=== PATIENT | male | born 1990 | race African-American/Black ===

== ENCOUNTER 2018-03-20 17:14 | Emergency (ER) | payer SELFPAY ==
[2018-03-20] MEDS ORDERED: HYDROCODONE/ACETAMINOPHEN 5-325 MG TABLET PO ONE (18:30)
[2018-03-20] MEDS ORDERED: ONDANSETRON 4 MG TAB.RAPDIS PO ONE (18:30)
[2018-03-20 19:05] LABS: ABSOLUTE EOSINOPHILS # (AUTO) 0.1 10^3/uL (0.0-0.6); ABSOLUTE LYMPHOCYTES (AUTO) 1.8 10^3/uL (0.5-4.7); ABSOLUTE MONOCYTES (AUTO) 0.5 10^3/uL (0.1-1.4); BASOPHILS % (AUTO) 0.4 % (0-2); EOSINOPHILS % (AUTO) 0.9 % (0-6); HEMATOCRIT 46.7 % (37.9-51.0); HEMOGLOBIN 15.5 g/dL (13.5-17.0); LYMPHOCYTES % (AUTO) 28.3 % (13-45); MEAN CORPUSCULAR HGB CONC 33.2 g/dL (32.0-36.0); MEAN CORPUSCULAR VOLUME 85 fl (80-97); MONOCYTES % (AUTO) 7.9 % (3-13); PLATELET COUNT 143 10^3/uL (150-450); RED BLOOD COUNT 5.52 10^6/uL (4.35-5.55); RED CELL DISTRIBUTION WIDTH 14.6 % (11.5-14.0); SEGMENTED NEUTROPHILS % (AUTO) 62.5 % (42-78); TOTAL CELLS COUNTED % (AUTO) 100 %; WHITE BLOOD COUNT 6.5 10^3/uL (4.0-10.5)
[2018-03-20 19:20] LABS: ALANINE AMINOTRANSFERASE 18 U/L (21-72); ALBUMIN 4.8 g/dL (3.5-5.0); ALKALINE PHOSPHATASE 91 U/L (38-126); ANION GAP 9 (5-19); ASPARTATE AMINO TRANSFERASE 17 U/L (17-59); BILIRUBIN,DIRECT 0.2 mg/dL (0.0-0.4); BILIRUBIN,TOTAL 0.5 mg/dL (0.2-1.3); BLOOD UREA NITROGEN 11 mg/dL (7-20); CALCIUM 9.7 mg/dL (8.4-10.2); CARBON DIOXIDE 27 mmol/L (22-30); CHLORIDE 104 mmol/L (98-107); GLUCOSE 89 mg/dL (75-110); POTASSIUM 4.2 mmol/L (3.6-5.0); SODIUM 140.2 mmol/L (137-145); TOTAL PROTEIN 7.7 g/dL (6.3-8.2)
--- NOTE | 2018-03-20 20:36 | ER Document Report ---
ED Medical Screen (RME) - General Chief Complaint: Bloody Stools Stated Complaint: BLOOD IN STOOL/FLU SYMPTOMS Time Seen by Provider: 03/20/18 18:23 Mode of Arrival: Ambulatory Information source: Patient TRAVEL OUTSIDE OF THE [place] IN LAST 30 DAYS: No - HPI Patient complains to provider of: Nausea abdominal pain rectal bleeding. Onset: Other - This is a 27-year-old man who presents for episodes of red blood on his toilet paper over the last day as well as persistent nausea and vomiting over the last day. He had been vomiting multiple times leading up to this morning around 1 AM since he has been able to take small sips of fluids. He denies any surgical history of past medical history of blood thinner use or otherwise. - Related Data Allergies/Adverse Reactions: amoxicillin trihydrate [From Augmentin] Allergy (Verified 03/20/18 18:27) Potassium Clavulanate * [From Augmentin] Allergy (Verified 03/20/18 18:27) Past Medical History - General Information source: Patient - Social History Cigarette use (# per day): Yes Chew tobacco use (# tins/day): No Frequency of alcohol use: Occasional Drug Abuse: None Renal/ Medical History: Denies: Hx Peritoneal Dialysis - Immunizations Immunizations up to date: Yes Hx Diphtheria, Pertussis, Tetanus Vaccination: Yes Review of Systems - Review of Systems -: Yes All other systems reviewed and negative Physical Exam - Vital signs Vitals: Temp Pulse Resp BP Pulse Ox 98.3 F 76 16 127/82 H 99 03/20/18 17:32 03/20/18 17:32 03/20/18 17:32 03/20/18 17:32 03/20/18 17:32 Interpretation: Normal - General General appearance: Appears well, Alert - HEENT Head: Normocephalic, Atraumatic Eyes: Normal Pupils: PERRL - Respiratory Respiratory status: No respiratory distress Chest status: Nontender Breath sounds: Normal Chest palpation: Normal - Cardiovascular Rhythm: Regular Heart sounds: Normal auscultation Murmur: No - Abdominal Inspection: Normal Distension: No distension Bowel sounds: Normal Tenderness: Tender - Diffuse tenderness throughout the abdomen most prominent in the inferior aspect Organomegaly: No organomegaly - Back Back: Normal, Nontender - Extremities General upper extremity: Normal inspection, Nontender, Normal color, Normal ROM, Normal temperature General lower extremity: Normal inspection, Nontender, Normal color, Normal ROM, Normal temperature, Normal weight bearing. No: Brina's sign - Neurological Neuro grossly intact: Yes Cognition: Normal Orientation: AAOx4 Naif Coma Scale Eye Opening: Spontaneous Naif Coma Scale Verbal: Oriented Naif Coma Scale Motor: Obeys Commands Naif Coma Scale Total: 15 Speech: Normal Motor strength normal: LUE, RUE, LLE, RLE Sensory: Normal - Psychological Associated symptoms: Normal affect, Normal mood - Skin Skin Temperature: Warm Skin Moisture: Dry Skin Color: Normal Course - Re-evaluation Re-evalutation: 03/20/18 20:57 27-year-old man who presents for evaluation of pain in the setting of prominent vomiting with retching over the last day which worsened today stopping at 1 AM thereafter he was having some abdominal pain and then noted blood on toilet paper after 2 episodes of going to the bathroom with perfuse watery diarrhea. He endorses some low-grade fevers. Because of his well appearance on exam we will pursue a workup including CMP CBC administration of an antiemetic p.o. fluids and reassessment. Do not believe this person should undergo immediate imaging at this time such as but not limited to x-rays, CT imaging. Do not believe that he has acute appendicitis, diverticulitis, diverticulosis. On reassessment this patient has reassuring labs, and improved abdominal examination. Is able to tolerate p.o. in the emergency department. We will plan for antipyretic antiemetic and diarrhea medication with discharge. - Vital Signs Vital signs: Temp Pulse Resp BP Pulse Ox 98.3 F 76 16 127/82 H 99 03/20/18 17:32 03/20/18 17:32 03/20/18 17:32 03/20/18 17:32 03/20/18 17:32 - Laboratory Result Diagrams: 03/20/18 18:43 03/20/18 18:43 Laboratory results interpreted by me: 03/20/18 03/20/18 18:43 18:43 RDW 14.6 H Plt Count 143 L ALT 18 L Doctor's Discharge - Discharge Clinical Impression: BRBPR (bright red blood per rectum), Nausea Vomiting Qualifiers: Vomiting type: unspecified Vomiting Intractability: unspecified Nausea presence: unspecified Qualified Code(s): R11.10 - Vomiting, unspecified Abdominal pain Qualifiers: Abdominal location: unspecified location Qualified Code(s): R10.9 - Unspecified abdominal pain Condition: Good Disposition: HOME, SELF-CARE Instructions: Abdominal Pain ([facility]), Antinausea Medication ([facility]), Prescribed Ant idiarrhea Medications ([facility]), Vomiting ([facility]) Additional Instructions: You were seen today in the emergency department for your abdominal pain as well as nausea and vomiting and diarrhea. You have been given a medication to help with the nausea it is called Zofran. You have been given a medication to help with the diarrhea it is called Lomotil. Use the nausea medication and drink fluids thereafter such as Pedialyte or Gatorade. For the cramps and pain in your abdomen use Tylenol 1 g 4 times daily. Return in case you have any worsening fevers or chills, if you are unable to eat or drink anything or if your pain changes or worsens. Prescriptions: Acetaminophen [Tylenol 325 mg Tablet] 975 mg PO Q6HP PRN #60 tablet PRN Reason: Diphenoxylate HCl/Atropine [Lomotil Tablet] 1 each PO BID PRN #30 tablet PRN Reason: Ondansetron [Zofran Odt 4 mg Tablet] 1 - 2 tab PO Q4H PRN #30 tab.rapdis PRN Reason: For Nausea/Vomiting Forms: Return to Work
[2018-03-20 21:47] VITALS: BP 122/81
== END 2018-03-20 21:47 | disposition home or self-care (01) ==
LOC: ER 17:14
DX: K62.5 Hemorrhage of anus and rectum (principal); R11.2 Nausea with vomiting, unspecified; R10.9 Unspecified abdominal pain; R10.817 Generalized abdominal tenderness; R19.7 Diarrhea, unspecified; R50.9 Fever, unspecified; Z72.0 Tobacco use; Z88.0 Allergy status to penicillin
CPT/HCPCS: 99283; 36415; 85025; 80053; S0119

== ENCOUNTER 2019-01-07 12:30 | Emergency (ER) | payer SELFPAY ==
[2019-01-07] MEDS ORDERED: LIDOCAINE 2% VISCOUS SOLN 20 ML UDCUP PO ONE (14:32)
[2019-01-07] MEDS ORDERED: ACETAMINOPHEN 325 MG TABLET PO ONE (14:33)
[2019-01-07] MEDS ORDERED: IBUPROFEN 600 MG TABLET PO ONE (14:33)
--- NOTE | 2019-01-07 14:34 | ER Document Report ---
HPI - HPI Patient complains to provider of: tooth pain Time Seen by Provider: 01/07/19 14:21 Context: 28-year-old male presents the emergency department with significant pain at the area of #32 tooth. Patient states it has been hurting since last night but this morning it was painful for him to open his mouth and it hurts to swallow. Patient denies foul taste in his mouth, denies trismus, denies fevers or chills, denies dysphagia - REPRODUCTIVE Reproductive: DENIES: : Past Medical History - Social History Smoking Status: Unknown if Ever Smoked Family History: Reviewed & Not Pertinent Renal/ Medical History: Denies: Hx Peritoneal Dialysis - Immunizations Immunizations up to date: Yes Hx Diphtheria, Pertussis, Tetanus Vaccination: Yes Vertical Provider Document - CONSTITUTIONAL Notes: PHYSICAL EXAMINATION: Reviewed vital signs and charting by RN GENERAL: Alert, interacts well. No acute distress. HEAD: Normocephalic, atraumatic. EYES: Pupils equal and round. Extraocular movements intact. ENT: Oral mucosa moist, tongue midline. Gingival swelling around the #32 tooth on the lingual side. NECK: Full range of motion. Trachea midline. EXTREMITIES: Moves all 4 extremities spontaneously. No edema, No cyanosis. PSYCH: Normal affect, normal mood. SKIN: Warm, dry, normal turgor. No rashes or lesions noted. - INFECTION CONTROL TRAVEL OUTSIDE OF THE [place] IN LAST 30 DAYS: No Course - Re-evaluation Re-evalutation: 01/07/19 15:02 Presentation is most consistent with likely an infected tooth. Airway is patent. Vitals within normal limits. Patient is able swallow without any difficulty. There is no significant facial swelling. No evidence of Jeferson angina, apical abscess, or airway obstruction. Patient will be started on antibiotics. I've instructed to follow-up with dentistry as earliest ability for definitive management. At this time will discharge with return precautions and follow-up recommendations. Verbal discharge instructions given a the bedside and opportunity for questions given. Medication warnings reviewed. Patient is in agreement with this plan and has verbalized understanding of return precautions and the need for primary care follow-up in the next 24-72 hours. - Vital Signs Vital signs: Temp Pulse Resp BP Pulse Ox 97.8 F 70 18 121/65 98 01/07/19 12:54 01/07/19 12:54 01/07/19 12:54 01/07/19 12:54 01/07/19 12:54 Discharge - Discharge Clinical Impression: Tooth infection Condition: Good Disposition: HOME, SELF-CARE Additional Instructions: You have been seen for dental pain. It is very important that you follow-up with a dentist for definitive care. Please return if you develop fever greater than 101, swelling in your face, vomiting, difficulty breathing or swallowing, or any other symptoms that are concerning to you. Please take the antibiotics as prescribed and use the good Rx card to help offset the costs. It is important because you are allergic to the penicillins that you need to take this 1. For pain you should take ibuprofen 600 mg every 6 hours as needed. [facility] as they can do extractions if they deem that tooth needs to get removed. Their number is [phone]
[2019-01-07] MEDS ORDERED: CLINDAMYCIN HCL 150 MG CAPSULE PO ONE (14:45)
[2019-01-07 15:41] VITALS: BP 110/69
== END 2019-01-07 15:41 | disposition home or self-care (01) ==
LOC: ER 12:30
DX: K04.7 Periapical abscess without sinus (principal); K08.89 Other specified disorders of teeth and supporting structures
CPT/HCPCS: J3490

== ENCOUNTER 2019-04-07 21:53 | Inpatient (IN) | payer SELFPAY ==
[2019-04-07] MEDS ORDERED: DIPH/PERTUSS(ACELL)/TETANUS VAC/PF 0.5 ML SYR (>=10YO) IM ONE (22:01)
[2019-04-07 22:12] LABS: ABSOLUTE BASOPHILS # (AUTO) 0.1 10^3/uL (0.0-0.2); ABSOLUTE EOSINOPHILS # (AUTO) 0.4 10^3/uL (0.0-0.6); ABSOLUTE LYMPHOCYTES (AUTO) 4.8 10^3/uL (0.5-4.7); ABSOLUTE MONOCYTES (AUTO) 1.1 10^3/uL (0.1-1.4); ABSOLUTE NEUT (AUTO) 4.2 10^3/uL (1.7-8.2); BASOPHILS % (AUTO) 0.8 % (0-2); EOSINOPHILS % (AUTO) 4.1 % (0-6); HEMATOCRIT 49.7 % (37.9-51.0); HEMOGLOBIN 15.8 g/dL (13.5-17.0); LYMPHOCYTES % (AUTO) 45.6 % (13-45); MEAN CORPUSCULAR HEMOGLOBIN 28.3 pg (27.0-33.4); MEAN CORPUSCULAR HGB CONC 31.8 g/dL (32.0-36.0); MEAN CORPUSCULAR VOLUME 89 fl (80-97); MONOCYTES % (AUTO) 10.5 % (3-13); PLATELET COUNT 185 10^3/uL (150-450); RED BLOOD COUNT 5.59 10^6/uL (4.35-5.55); RED CELL DISTRIBUTION WIDTH 14.7 % (11.5-14.0); TOTAL CELLS COUNTED % (AUTO) 100 %; WHITE BLOOD COUNT 10.6 10^3/uL (4.0-10.5)
[2019-04-07] MEDS ORDERED: LIDOCAINE 1%/EPINEPHRINE INJ 20 ML VIAL ONE ×2 (22:21→22:30)
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
[2019-04-07] MEDS ORDERED: MIDAZOLAM 2 MG/2 ML INJ ONE (22:28)
[2019-04-07] MEDS ORDERED: FENTANYL CITRATE INJ/PF 100 MCG/2 ML AMPUL ONE (22:28)
[2019-04-07] MEDS ORDERED: CLINDAMYCIN 600 MG/D5W RTU 600 MG/50 ML RTUPB IV SCH (22:30)
[2019-04-07 22:35] LABS: ALBUMIN 5.2 g/dL (3.5-5.0); ALKALINE PHOSPHATASE 84 U/L (38-126); ASPARTATE AMINO TRANSFERASE 26 U/L (17-59); BILIRUBIN,DIRECT 0.1 mg/dL (0.0-0.4); BILIRUBIN,TOTAL 0.6 mg/dL (0.2-1.3); BLOOD UREA NITROGEN 20 mg/dL (7-20); CALCIUM 10.2 mg/dL (8.4-10.2); GLUCOSE 97 mg/dL (75-110); POTASSIUM 4.1 mmol/L (3.6-5.0); TOTAL PROTEIN 8.2 g/dL (6.3-8.2)
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
[2019-04-07 22:40] LABS: CARBON DIOXIDE 12 mmol/L (22-30); CHLORIDE 106 mmol/L (98-107)
[2019-04-07 22:43] LABS: ALCOHOL < 10 mg/dL (NONE DETECTED); ANION GAP 28 (5-19)
[2019-04-07] MEDS ORDERED: MIDAZOLAM 2 MG/2 ML INJ IV ONE ×2 (23:37→23:39)
[2019-04-07] MEDS ORDERED: FENTANYL CITRATE INJ/PF 100 MCG/2 ML AMPUL IV ONE ×2 (23:37→23:39)
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
[2019-04-08] MEDS ORDERED: NORMAL SALINE 1000 ML 1,000 ML IV ONE (00:11)
[2019-04-08] MEDS ORDERED: ONDANSETRON HCL INJ/PF 4 MG/2 ML SDV IV PRN (00:33)
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
[2019-04-08 00:46] LABS: APPEARANCE,URINE CLEAR; BILIRUBIN,URINE NEGATIVE (NEGATIVE); COLOR,URINE STRAW; GLUCOSE, URINE NEGATIVE (NEGATIVE); KETONES,URINE NEGATIVE (NEGATIVE); PROTEIN,URINE NEGATIVE (NEGATIVE); URINE SPECIFIC GRAVITY 1.027; UROBILINOGEN,URINE NEGATIVE mg/dL (<2.0)
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
[2019-04-08] MEDS ORDERED: FAMOTIDINE INJ/PF 20 MG/2 ML SDV IV ONE (01:15)
[2019-04-08] MEDS ORDERED: CYCLOBENZAPRINE HCL 10 MG TABLET PO ONE (01:15)
[2019-04-08 01:16] LABS: URINE AMPHETAMINES SCREEN NEGATIVE; URINE BARBITURATES SCREEN NEGATIVE; URINE COCAINE SCREEN NEGATIVE; URINE METHADONE SCREEN NEGATIVE; URINE PHENCYCLIDINE SCREEN NEGATIVE
[2019-04-08 01:17] LABS: URINE BENZODIAZEPINES SCREEN UNCONFIRMED POSITIVE; URINE MARIJUANA (THC) SCREEN UNCONFIRMED POSITIVE
[2019-04-08] MEDS: NORMAL SALINE 1000 ML 1,000 ML IV PRN ×3 (01:18→17:47)
[2019-04-08] MEDS ORDERED: MORPHINE SULFATE 10 MG/ML INJ IV PRN (02:57)
[2019-04-08] MEDS: ACETAMINOPHEN 1,000 MG/100 ML RTUPB IV SCH ×3 (03:58→14:34)
[2019-04-08] MEDS ORDERED: CLINDAMYCIN 600 MG/D5W RTU 600 MG/50 ML RTUPB IV ONE (04:18)
[2019-04-08] MEDS ORDERED: CLINDAMYCIN 600 MG/D5W RTU 600 MG/50 ML RTUPB IV SCH (06:00)
[2019-04-08] MEDS: CYCLOBENZAPRINE HCL 10 MG TABLET PO SCH ×3 (09:37→17:48)
[2019-04-08] MEDS: ENOXAPARIN SODIUM INJ 40 MG/0.4 ML DISP.SYRIN SUBCUT SCH (09:37)
[2019-04-08] MEDS ORDERED: FAMOTIDINE INJ/PF 20 MG/2 ML SDV IV SCH (10:00)
[2019-04-08] MEDS ORDERED: INFLUENZA QUAD (6MOS+) 2019-20 VAC 0.5 ML SYR IM ONE (14:40)
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
[2019-04-08 16:55] LABS: BLOOD UREA NITROGEN 11 mg/dL (7-20); CALCIUM 8.7 mg/dL (8.4-10.2); CHLORIDE 107 mmol/L (98-107); GLUCOSE 88 mg/dL (75-110); POTASSIUM 3.9 mmol/L (3.6-5.0)
[2019-04-08 17:03] LABS: ANION GAP 8 (5-19)
[2019-04-08 17:10] LABS: CARBON DIOXIDE 21 mmol/L (22-30)
[2019-04-08] MEDS: MORPHINE SULFATE 10 MG/ML INJ IV PRN (20:40)
[2019-04-08] MEDS: KETOROLAC TROMETHAMINE INJ/PF 30 MG/1 ML SDV IV SCH (21:57)
[2019-04-08] MEDS: FAMOTIDINE 20 MG TABLET PO SCH (21:57)
[2019-04-09] MEDS: MORPHINE SULFATE 10 MG/ML INJ IV PRN (02:08)
[2019-04-09] MEDS: NORMAL SALINE 1000 ML 1,000 ML IV PRN ×2 (02:11→13:12)
[2019-04-09 05:10] LABS: ABSOLUTE EOSINOPHILS # (AUTO) 0.1 10^3/uL (0.0-0.6); ABSOLUTE LYMPHOCYTES (AUTO) 1.4 10^3/uL (0.5-4.7); ABSOLUTE MONOCYTES (AUTO) 0.6 10^3/uL (0.1-1.4); ABSOLUTE NEUT (AUTO) 3.9 10^3/uL (1.7-8.2); BASOPHILS % (AUTO) 0.4 % (0-2); EOSINOPHILS % (AUTO) 1.7 % (0-6); HEMATOCRIT 40.1 % (37.9-51.0); MEAN CORPUSCULAR HEMOGLOBIN 27.9 pg (27.0-33.4); MEAN CORPUSCULAR HGB CONC 32.7 g/dL (32.0-36.0); MONOCYTES % (AUTO) 10.4 % (3-13); PLATELET COUNT 132 10^3/uL (150-450); RED CELL DISTRIBUTION WIDTH 14.6 % (11.5-14.0); SEGMENTED NEUTROPHILS % (AUTO) 64.5 % (42-78); TOTAL CELLS COUNTED % (AUTO) 100 %
[2019-04-09] MEDS: KETOROLAC TROMETHAMINE INJ/PF 30 MG/1 ML SDV IV SCH ×3 (05:14→21:59)
[2019-04-09 05:17] LABS: HEMOGLOBIN 13.1 g/dL (13.5-17.0); MEAN CORPUSCULAR VOLUME 85 fl (80-97)
[2019-04-09 05:24] LABS: ANION GAP 5 (5-19); BLOOD UREA NITROGEN 8 mg/dL (7-20); CALCIUM 8.6 mg/dL (8.4-10.2); CARBON DIOXIDE 25 mmol/L (22-30); CHLORIDE 109 mmol/L (98-107); GLUCOSE 99 mg/dL (75-110); POTASSIUM 3.8 mmol/L (3.6-5.0)
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
[2019-04-09] MEDS: FAMOTIDINE 20 MG TABLET PO SCH ×2 (09:30→21:59)
[2019-04-09] MEDS: CYCLOBENZAPRINE HCL 10 MG TABLET PO SCH ×3 (09:30→18:16)
[2019-04-09] MEDS: ENOXAPARIN SODIUM INJ 40 MG/0.4 ML DISP.SYRIN SUBCUT SCH (09:33)
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
[2019-04-09] MEDS: DOCUSATE SODIUM 100 MG CAPSULE PO SCH (18:15)
[2019-04-10] MEDS: HYDROCODONE/ACETAMINOPHEN 10-325 MG TABLET PO PRN ×4 (01:14→21:27)
[2019-04-10] MEDS: NORMAL SALINE 1000 ML 1,000 ML IV PRN ×2 (03:06→17:42)
[2019-04-10] MEDS: KETOROLAC TROMETHAMINE INJ/PF 30 MG/1 ML SDV IV SCH ×3 (05:36→21:27)
[2019-04-10] MEDS: DOCUSATE SODIUM 100 MG CAPSULE PO SCH ×2 (10:53→17:42)
[2019-04-10] MEDS: CYCLOBENZAPRINE HCL 10 MG TABLET PO SCH ×3 (10:53→17:42)
[2019-04-10] MEDS: FAMOTIDINE 20 MG TABLET PO SCH ×2 (10:53→21:27)
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
[2019-04-10] MEDS: MORPHINE SULFATE 10 MG/ML INJ IV PRN ×2 (11:48→22:59)
[2019-04-10] MEDS: ENOXAPARIN SODIUM INJ 40 MG/0.4 ML DISP.SYRIN SUBCUT SCH (12:27)
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
[2019-04-11] MEDS: HYDROCODONE/ACETAMINOPHEN 10-325 MG TABLET PO PRN ×4 (02:24→23:30)
[2019-04-11] MEDS: NORMAL SALINE 1000 ML 1,000 ML IV PRN ×2 (02:25→12:54)
[2019-04-11] MEDS: KETOROLAC TROMETHAMINE INJ/PF 30 MG/1 ML SDV IV SCH ×3 (05:47→22:16)
[2019-04-11] MEDS: MORPHINE SULFATE 10 MG/ML INJ IV PRN ×2 (06:30→12:50)
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
[2019-04-11] MEDS: FAMOTIDINE 20 MG TABLET PO SCH ×2 (11:31→22:15)
[2019-04-11] MEDS: CYCLOBENZAPRINE HCL 10 MG TABLET PO SCH ×3 (11:31→18:25)
[2019-04-11] MEDS: DOCUSATE SODIUM 100 MG CAPSULE PO SCH ×2 (11:31→18:25)
[2019-04-11] MEDS: ENOXAPARIN SODIUM INJ 40 MG/0.4 ML DISP.SYRIN SUBCUT SCH (11:36)
[2019-04-11] MEDS ORDERED: HYDROMORPHONE HCL INJ/PF 2 MG/ML AMPULE ONE (13:15)
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
--- NOTE | 2019-04-11 16:12 | Operative Report ---
Nonrecallable Operative Report DATE OF SURGERY: 04/11/19 PREOPERATIVE DIAGNOSIS: Persistent right-sided pneumothorax. POSTOPERATIVE DIAGNOSIS: Same as above. OPERATION: Percutaneous 12 [place], anterior chest tube placement SURGEON: ALLY CRANE ANESTHESIA: Local TISSUE REMOVED OR ALTERED: None COMPLICATIONS: None apparent ESTIMATED BLOOD LOSS: Minimal PROCEDURE: Drains/implants: 12 [place] right superior pigtail thoracostomy. Procedure in detail: After informed consent was obtained from the patient, he was sat in the semi-upright position in the hospital room. The right chest was prepped and draped in a normal sterile fashion. 1% lidocaine was used to infiltrate the skin of the right chest wall, at the midclavicular line, and the second intercostal space. An incision was created with 11 blade scalpel. Dissection was carried down to the chest wall using a Dolly clamp. This was done bluntly. Next, a 12 [place] chest tube was placed into the thoracic cavity, over a trocar, percutaneously. Once the thoracic cavity was entered, a thakkar of air was appreciated. The catheter was then slid into the thoracic cavity, over the stylette. The pigtail was locked into place, and the catheter was sutured to the skin. Catheter was sutured using 0 silk suture x2. A dressing was then placed, and the chest tube was attached to to 25 cm of H2O suction. There was an air leak appreciated after suction was applied, however it subsequently slowed. At this time the procedure was concluded. All sponge, instrument, and needle counts were correct x2. Condition: Stable.
[2019-04-12] MEDS: HYDROCODONE/ACETAMINOPHEN 10-325 MG TABLET PO PRN ×2 (04:02→14:14)
[2019-04-12] MEDS: KETOROLAC TROMETHAMINE INJ/PF 30 MG/1 ML SDV IV SCH ×3 (05:42→22:03)
--- NOTE | 2019-04-12 08:32 | RADIOLOGY REPORT (SQ) ---
EXAM DESCRIPTION: CHEST SINGLE VIEW COMPLETED DATE/TIME: 04/12/2019 8:19 am REASON FOR STUDY: PTX COMPARISON: 04/11/2019 EXAM PARAMETERS: NUMBER OF VIEWS: One view. TECHNIQUE: Single frontal radiographic view of the chest acquired. RADIATION DOSE: NA LIMITATIONS: None. FINDINGS: LUNGS AND PLEURA: Large-bore right-sided chest tube remains in place. Since prior study a n additional small bore catheter has been placed. The pneumothorax is re-expanded. No consolidation or effusions. MEDIASTINUM AND HILAR STRUCTURES: No masses. Contour normal. HEART AND VASCULAR STRUCTURES: Heart normal in size. Normal vasculature. BONES: No acute findings. HARDWARE: None in the chest. OTHER: No other significant finding. IMPRESSION: 2 right-sided chest tubes are in place. Right-sided pneumothorax has resolved. TECHNICAL DOCUMENTATION: JOB ID: [id number] [employer]- All Rights Reserved Reading location - IP/workstation name: [email or web address]
[2019-04-12] MEDS: DOCUSATE SODIUM 100 MG CAPSULE PO SCH ×2 (10:52→18:30)
[2019-04-12] MEDS: CYCLOBENZAPRINE HCL 10 MG TABLET PO SCH ×3 (10:52→18:30)
[2019-04-12] MEDS: ENOXAPARIN SODIUM INJ 40 MG/0.4 ML DISP.SYRIN SUBCUT SCH (10:52)
[2019-04-12] MEDS: FAMOTIDINE 20 MG TABLET PO SCH ×2 (10:52→22:03)
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
[2019-04-12 23:06] LABS: APPEARANCE,URINE CLEAR; BILIRUBIN,URINE NEGATIVE (NEGATIVE); COLOR,URINE YELLOW; GLUCOSE, URINE NEGATIVE (NEGATIVE); KETONES,URINE NEGATIVE (NEGATIVE); LEUKOCYTE ESTERASE,URINE NEGATIVE (NEGATIVE); NITRITE,URINE NEGATIVE (NEGATIVE); PROTEIN,URINE NEGATIVE (NEGATIVE); URINE SPECIFIC GRAVITY 1.019
[2019-04-13] MEDS: HYDROCODONE/ACETAMINOPHEN 10-325 MG TABLET PO PRN (00:03)
[2019-04-13] MEDS: KETOROLAC TROMETHAMINE INJ/PF 30 MG/1 ML SDV IV SCH ×2 (05:50→13:52)
--- NOTE | 2019-04-13 09:01 | RADIOLOGY REPORT (SQ) ---
EXAM DESCRIPTION: CHEST SINGLE VIEW COMPLETED DATE/TIME: 04/13/2019 8:42 am REASON FOR STUDY: f/u ptx COMPARISON: 04/12/2019 NUMBER OF VIEWS: One view. TECHNIQUE: Single frontal radiographic image of the chest acquired. LIMITATIONS: None. FINDINGS: LUNGS AND PLEURA: No pneumothorax or infiltrate. MEDIASTINUM AND HEART: Stable heart size and mediastinal structures. SUPPORT DEVICES: Appropriate location without change. BONY STRUCTURES: No acute findings. HARDWARE: None. OTHER: No other significant finding. IMPRESSION: No pneumothorax. Reading location - IP/workstation name: [email or web address]
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
[2019-04-13] MEDS: ENOXAPARIN SODIUM INJ 40 MG/0.4 ML DISP.SYRIN SUBCUT SCH (10:36)
[2019-04-13] MEDS: CYCLOBENZAPRINE HCL 10 MG TABLET PO SCH ×3 (10:39→17:36)
[2019-04-13] MEDS: DOCUSATE SODIUM 100 MG CAPSULE PO SCH ×2 (10:39→17:36)
[2019-04-13] MEDS: FAMOTIDINE 20 MG TABLET PO SCH ×2 (10:40→21:43)
--- NOTE | 2019-04-13 11:19 | RADIOLOGY REPORT (SQ) ---
EXAM DESCRIPTION: CHEST SINGLE VIEW COMPLETED DATE/TIME: 04/13/2019 11:04 am REASON FOR STUDY: s/p chest tube removal COMPARISON: Earlier the same day. NUMBER OF VIEWS: One view. TECHNIQUE: Single frontal radiographic image of the chest acquired. LIMITATIONS: None. FINDINGS: LUNGS AND PLEURA: Less than 10% right apical pneumothorax. MEDIASTINUM AND HEART: Stable heart size and mediastinal structures. SUPPORT DEVICES: Interval removal of large bore chest tube. BONY STRUCTURES: No acute findings. HARDWARE: None. OTHER: No other significant finding. IMPRESSION: Less than 10% right apical pneumothorax. Reading location - IP/workstation name: [email or web address]
--- NOTE | 2019-04-14 08:54 | RADIOLOGY REPORT (SQ) ---
EXAM DESCRIPTION: CHEST SINGLE VIEW COMPLETED DATE/TIME: 04/14/2019 8:13 am REASON FOR STUDY: f/u ptx COMPARISON: 04/13/2019 EXAM PARAMETERS: NUMBER OF VIEWS: One view. TECHNIQUE: Single frontal radiographic view of the chest acquired. RADIATION DOSE: NA LIMITATIONS: None. FINDINGS: LUNGS AND PLEURA: Resolution of previously seen right apical pneumothorax. Unchanged smal l bore right-sided chest tube. No pleural effusion. No airspace disease. MEDIASTINUM AND HILAR STRUCTURES: No masses. Contour normal. HEART AND VASCULAR STRUCTURES: Heart normal in size. Normal vasculature. BONES: No acute findings. HARDWARE: Unchanged small bore right-sided chest tube. Surgical clips overlie right lower chest. OTHER: No other significant finding. IMPRESSION: Stable small bore right-sided chest tube with resolution of previously seen pneumothorax . TECHNICAL DOCUMENTATION: JOB ID: [id number] [employer]- All Rights Reserved Reading location - IP/workstation name: [email or web address]
[2019-04-14] MEDS: ENOXAPARIN SODIUM INJ 40 MG/0.4 ML DISP.SYRIN SUBCUT SCH (09:57)
[2019-04-14] MEDS: CYCLOBENZAPRINE HCL 10 MG TABLET PO SCH ×3 (10:02→17:33)
[2019-04-14] MEDS: FAMOTIDINE 20 MG TABLET PO SCH ×2 (10:02→21:44)
[2019-04-14] MEDS: DOCUSATE SODIUM 100 MG CAPSULE PO SCH ×2 (10:03→17:29)
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
[2019-04-15] MEDS: FAMOTIDINE 20 MG TABLET PO SCH ×2 (09:53→21:09)
[2019-04-15] MEDS: ENOXAPARIN SODIUM INJ 40 MG/0.4 ML DISP.SYRIN SUBCUT SCH (09:53)
[2019-04-15] MEDS: DOCUSATE SODIUM 100 MG CAPSULE PO SCH ×2 (09:53→17:08)
[2019-04-15] MEDS: CYCLOBENZAPRINE HCL 10 MG TABLET PO SCH ×3 (09:53→17:08)
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
[2019-04-16] MEDS: FAMOTIDINE 20 MG TABLET PO SCH (09:08)
[2019-04-16] MEDS: DOCUSATE SODIUM 100 MG CAPSULE PO SCH (09:08)
[2019-04-16] MEDS: ENOXAPARIN SODIUM INJ 40 MG/0.4 ML DISP.SYRIN SUBCUT SCH (09:08)
[2019-04-16] MEDS: CYCLOBENZAPRINE HCL 10 MG TABLET PO SCH ×2 (09:09→13:08)
--- NOTE | 2019-04-16 09:33 | RADIOLOGY REPORT (SQ) ---
EXAM DESCRIPTION: CHEST SINGLE VIEW COMPLETED DATE/TIME: 04/16/2019 8:37 am REASON FOR STUDY: Follow-up pneumothorax COMPARISON: AP view of the chest from 04/14/2019. EXAM PARAMETERS: NUMBER OF VIEWS: One view. TECHNIQUE: An AP view of the chest was obtained. RADIATION DOSE: NA LIMITATIONS: None. FINDINGS: LUNGS AND PLEURA: The round opacity in the inferior right hemithorax could represent the c avitary lesion in the right middle lobe that was described on the CT from 04/07/2019. The position of the right-sided pleural drainage catheter is unchanged. There is no pneumothorax, pleural effusion or consolidation. MEDIASTINUM AND HILAR STRUCTURES: No mediastinal or hilar contour abnormality. HEART AND VASCULAR STRUCTURES: The cardiac silhouette and pulmonary vasculature are within normal patel its. BONES: No acute findings. HARDWARE: Surgical zeinab that project over the inferior right hemithorax. OTHER: No other finding. IMPRESSION: The round opacity in the inferior right hemithorax could represent the cavitary lesion i n the right middle lobe that was described on the CT from 04/07/2019. The position of the right-sided pleural drainage catheter is unchanged. TECHNICAL DOCUMENTATION: JOB ID: [id number] [employer]- All Rights Reserved Reading location - IP/workstation name: [email or web address]
[2019-04-16 11:07] VITALS: BP 129/81
--- NOTE | 2019-04-16 14:04 | RADIOLOGY REPORT (SQ) ---
EXAM DESCRIPTION: CHEST SINGLE VIEW COMPLETED DATE/TIME: 04/16/2019 12:21 pm REASON FOR STUDY: r/o ptx COMPARISON: AP view of the chest from 04/16/2019. EXAM PARAMETERS: NUMBER OF VIEWS: One view. TECHNIQUE: An AP view of the chest was obtained. RADIATION DOSE: NA LIMITATIONS: None. FINDINGS: LUNGS AND PLEURA: The right-sided pleural drainage catheter has been removed. There is n o pneumothorax. The radiographic appearance of the lungs and pleura is otherwise unchanged. MEDIASTINUM AND HILAR STRUCTURES: Stable mediastinal and hilar contours. HEART AND VASCULAR STRUCTURES: Stable cardiac silhouette. BONES: No acute findings. HARDWARE: Surgical zeinab that project over the inferior left hemithorax. OTHER: No other finding. IMPRESSION: The right-sided pleural drainage catheter has been removed. There is no pneumothorax. TECHNICAL DOCUMENTATION: JOB ID: [id number] [employer]- All Rights Reserved Reading location - IP/workstation name: [email or web address]
== END 2019-04-16 14:59 | disposition home or self-care (01) | DRG 914 ==
LOC: ER 21:53 → EH 04-08 00:43 → 4N 04-08 02:19
PROVIDERS: ADMIT Surgery; ATTEND Surgery
PROC: 0W9900Z Drainage of Right Pleural Cavity with Drainage Device, Open Approach (ICD-10-PCS; principal; 2019-04-07)
PROC: 3E0234Z Introduction of Serum, Toxoid and Vaccine into Muscle, Percutaneous Approach (ICD-10-PCS; 2019-04-07)
PROC: 0HQ5XZZ Repair Chest Skin, External Approach (ICD-10-PCS; 2019-04-08)
PROC: 0W9930Z Drainage of Right Pleural Cavity with Drainage Device, Percutaneous Approach (ICD-10-PCS; 2019-04-11)
DX: S21.311A Laceration without foreign body of right front wall of thorax with penetration into thoracic cavity, initial encounter (principal); S27.0XXA Traumatic pneumothorax, initial encounter; F17.210 Nicotine dependence, cigarettes, uncomplicated; X99.8XXA Assault by other sharp object, initial encounter; Y93.89 Activity, other specified; Y92.488 Other paved roadways as the place of occurrence of the external cause; Z23 Encounter for immunization
CPT/HCPCS: 36415; 71045; 71046; 71260; 74177; 80048; 80053; 80307; 81001; 83605; 85025; 86850; 86900; 86901; 87040; 90471; 90715; 94799; 96365; 99291; C1729; J0131; J1170; J1650; J1885; J2250; J2270; J2405; J3010; J3490; J7030; S0028

== ENCOUNTER → 2019-04-23 | Outpatient (CLI) | payer SELFPAY ==
--- NOTE | 2019-04-23 11:06 | RADIOLOGY REPORT (SQ) ---
EXAM DESCRIPTION: CHEST SINGLE VIEW COMPLETED DATE/TIME: 04/23/2019 10:58 am REASON FOR STUDY: F/U RT PNEUMOTHORAX COMPARISON: 04/16/2019 EXAM PARAMETERS: NUMBER OF VIEWS: One view. TECHNIQUE: Single frontal radiographic view of the chest acquired. RADIATION DOSE: NA LIMITATIONS: None. FINDINGS: LUNGS AND PLEURA: No pneumothorax. No new airspace disease. Unchanged ill-defined right mid lung opacity. No pleural effusion. MEDIASTINUM AND HILAR STRUCTURES: No masses. Contour normal. HEART AND VASCULAR STRUCTURES: Heart normal in size. Normal vasculature. BONES: No acute findings. HARDWARE: Skin zeinab overlie the lower right thorax. OTHER: No other significant finding. IMPRESSION: No pneumothorax or other evidence of new cardiopulmonary process. Grossly unchanged ill-defined right mid lung opacity. TECHNICAL DOCUMENTATION: JOB ID: [id number] [employer]- All Rights Reserved Reading location - IP/workstation name: [email or web address]
== END ==
LOC: EDSTATUS 10:31 → RAD 10:37
DX: J93.9 Pneumothorax, unspecified (principal)
CPT/HCPCS: 71045

== ENCOUNTER 2019-12-29 21:24 | Emergency (ER) | payer SELFPAY ==
[2019-12-29] MEDS ORDERED: IBUPROFEN 600 MG TABLET PO ONE (22:15)
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
[2019-12-30 02:40] LABS: ABSOLUTE EOSINOPHILS # (AUTO) 0.1 10^3/uL (0.0-0.6); ABSOLUTE LYMPHOCYTES (AUTO) 2.6 10^3/uL (0.5-4.7); ABSOLUTE MONOCYTES (AUTO) 0.4 10^3/uL (0.1-1.4); ABSOLUTE NEUT (AUTO) 3.2 10^3/uL (1.7-8.2); BASOPHILS % (AUTO) 0.4 % (0-2); EOSINOPHILS % (AUTO) 2.1 % (0-6); HEMATOCRIT 47.5 % (37.9-51.0); HEMOGLOBIN 15.9 g/dL (13.5-17.0); LYMPHOCYTES % (AUTO) 40.5 % (13-45); MEAN CORPUSCULAR HEMOGLOBIN 28.1 pg (27.0-33.4); MEAN CORPUSCULAR HGB CONC 33.5 g/dL (32.0-36.0); MEAN CORPUSCULAR VOLUME 84 fl (80-97); MONOCYTES % (AUTO) 6.9 % (3-13); PLATELET COUNT 160 10^3/uL (150-450); RED BLOOD COUNT 5.67 10^6/uL (4.35-5.55); RED CELL DISTRIBUTION WIDTH 14.1 % (11.5-14.0); SEGMENTED NEUTROPHILS % (AUTO) 50.1 % (42-78); TOTAL CELLS COUNTED % (AUTO) 100 %; WHITE BLOOD COUNT 6.4 10^3/uL (4.0-10.5)
[2019-12-30 02:55] LABS: ALBUMIN 4.9 g/dL (3.5-5.0); ALKALINE PHOSPHATASE 82 U/L (38-126); ANION GAP 12 (5-19); ASPARTATE AMINO TRANSFERASE 22 U/L (17-59); BILIRUBIN,DIRECT 0.3 mg/dL (0.0-0.4); BILIRUBIN,TOTAL 0.8 mg/dL (0.2-1.3); BLOOD UREA NITROGEN 18 mg/dL (7-20); CALCIUM 10.1 mg/dL (8.4-10.2); CARBON DIOXIDE 27 mmol/L (22-30); CHLORIDE 102 mmol/L (98-107); GLUCOSE 83 mg/dL (75-110); POTASSIUM 4.1 mmol/L (3.6-5.0)
[2019-12-30] MEDS ORDERED: KETOROLAC TROMETHAMINE 60 MG/2 ML SDV IM ONE (03:30)
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
[2019-12-30 04:50] VITALS: BP 109/66
--- NOTE | 2019-12-30 08:57 | EKG REPORT ---
SEVERITY:- ABNORMAL ECG - SINUS RHYTHM PROBABLE LEFT VENTRICULAR HYPERTROPHY : Confirmed by: Kalina Powell 30-Dec-2019 08:56:47
== END 2019-12-30 04:54 | disposition home or self-care (01) ==
LOC: ER 21:24
DX: M94.0 Chondrocostal junction syndrome [Tietze] (principal); R06.02 Shortness of breath; F17.200 Nicotine dependence, unspecified, uncomplicated; F12.10 Cannabis abuse, uncomplicated; Z87.828 Personal history of other (healed) physical injury and trauma; Z98.890 Other specified postprocedural states; Z88.0 Allergy status to penicillin
CPT/HCPCS: 93005; 99285; 96372; 36415; 85025; 80053; 84484; 71046; 93010; J1885